=== PATIENT | female | born 1970 | race Caucasian/White ===

== ENCOUNTER 2017-06-07 01:30 | Emergency (ER) | payer MEDICAID ==
[~2017-06-07] VITALS: Ht 165.1 cm; Wt 71.0 kg
[2017-06-07 01:39] VITALS: BP 152/95
== END 2017-06-07 03:00 | disposition left against medical advice (07) ==
LOC: ER 01:39
DX: Z53.21 Procedure and treatment not carried out due to patient leaving prior to being seen by health care provider (principal)

== ENCOUNTER 2018-09-29 06:02 | Emergency (ER) | payer MEDICAID ==
[~2018-09-29] VITALS: Ht 162.6 cm; Wt 59.0 kg
[2018-09-29] MEDS ORDERED: BENZONATATE 100MG CAPSULE PO ONE (06:45)
[2018-09-29] MEDS ORDERED: ALBUTEROL (0.083%) 2.5MG/3ML NEB HHN STA (06:45)
[2018-09-29 08:18] VITALS: BP 110/79
== END 2018-09-29 08:22 | disposition home or self-care (01) ==
LOC: ER 06:02
DX: J40 Bronchitis, not specified as acute or chronic (principal); F17.210 Nicotine dependence, cigarettes, uncomplicated; F12.10 Cannabis abuse, uncomplicated; F15.10 Other stimulant abuse, uncomplicated; Z80.7 Family history of other malignant neoplasms of lymphoid, hematopoietic and related tissues
CPT/HCPCS: 70360; 71045; 81025; 93005; 94640; 99283; J7611